=== PATIENT | male | born 1950 | race Caucasian/White ===

== ENCOUNTER 2017-03-06 11:00 | Day surgery (SDC) | payer MEDICARE ==
[~2017-03-06] VITALS: Ht 170.2 cm; Wt 106.0 kg
[~2017-03-06 11:00] MED LIST: ASPI-496 PO; FENO43CA3 PO; INSU100V8 SQ; LINA5TAB PO; OMEP-110 PO; OXYC5CAP2 PO; SITA25TA PO
[2017-03-06 11:27] VITALS: BP 127/69
[2017-03-06] MEDS ORDERED: SODIUM CHLORIDE 0.9% 1,000 ML IV ONE (11:30)
[2017-03-06] MEDS ORDERED: PROPOFOL 10 MG/ML, 20ML ONE (11:45)
== END 2017-03-06 13:20 ==
LOC: CACL 11:00
PROVIDERS: ATTEND Internal Medicine Cardiovascular Disease
DX: I34.0 Nonrheumatic mitral (valve) insufficiency (principal); I25.10 Atherosclerotic heart disease of native coronary artery without angina pectoris; E11.42 Type 2 diabetes mellitus with diabetic polyneuropathy; I38 Endocarditis, valve unspecified; G47.33 Obstructive sleep apnea (adult) (pediatric); J44.9 Chronic obstructive pulmonary disease, unspecified; I47.2 Ventricular tachycardia; E78.5 Hyperlipidemia, unspecified; Z88.1 Allergy status to other antibiotic agents; Z88.0 Allergy status to penicillin; Z88.8 Allergy status to other drugs, medicaments and biological substances
CPT/HCPCS: 93312; 93321; 93325; J2704

== ENCOUNTER → 2017-03-08 | Outpatient (CLI) | payer MEDICARE | END | disposition home or self-care (01) | LOC: CFH 12:18 | PROVIDERS: ATTEND Internal Medicine Cardiovascular Disease | DX: I65.23 Occlusion and stenosis of bilateral carotid arteries (principal); I47.2 Ventricular tachycardia | CPT/HCPCS: 78452; 93017; A9502; J2785 ==

== ENCOUNTER → 2017-03-09 | Outpatient (CLI) | payer MEDICARE ==
[~2017-03-09] MED LIST changes: +REGADENOSON 0.4 MG/5 ML SYRINGE ONE
== END | disposition home or self-care (01) ==
LOC: CVU 14:37
PROVIDERS: ATTEND Internal Medicine Cardiovascular Disease
DX: I65.23 Occlusion and stenosis of bilateral carotid arteries (principal); I47.2 Ventricular tachycardia; E11.9 Type 2 diabetes mellitus without complications; E78.5 Hyperlipidemia, unspecified; I10 Essential (primary) hypertension; I25.2 Old myocardial infarction; Z87.891 Personal history of nicotine dependence; Z95.5 Presence of coronary angioplasty implant and graft
CPT/HCPCS: 93880; J2785

== ENCOUNTER → 2017-03-23 | Outpatient (CLI) | payer MEDICARE ==
[~2017-03-23] MED LIST changes: -REGADENOSON 0.4 MG/5 ML SYRINGE ONE
== END | disposition home or self-care (01) ==
LOC: CVU 08:47
PROVIDERS: ATTEND Internal Medicine Cardiovascular Disease
DX: I51.7 Cardiomegaly (principal); I25.2 Old myocardial infarction; J44.9 Chronic obstructive pulmonary disease, unspecified; E11.9 Type 2 diabetes mellitus without complications; I47.2 Ventricular tachycardia; Z95.5 Presence of coronary angioplasty implant and graft
CPT/HCPCS: 93306

== ENCOUNTER 2017-07-12 14:08 | Inpatient (IN) | payer MEDICARE ==
[~2017-07-12] VITALS: Ht 170.2 cm; Wt 110.5 kg
[2017-07-12] MEDS ORDERED: MORPHINE SULFATE 4 MG/ML, 1ML IVPush PRN (14:30)
[2017-07-12] MEDS ORDERED: ONDANSETRON ODT 4 MG PO ONE (14:30)
[2017-07-12] MEDS ORDERED: SODIUM CHLORIDE FLUSH 10ML SYR IVF ONE (14:30)
[2017-07-12] MEDS ORDERED: PLEASE ENTER HEIGHT AND WEIGHT MC SCH (14:30)
[2017-07-12] MEDS ORDERED: MORPHINE SULFATE 4 MG/ML, 1ML ONE (14:43)
[2017-07-12 14:45] LABS: BASOPHILS # (AUTO) 0.06 x10^3/uL (0-0.1); BASOPHILS % (AUTO) 1 % (0-1); EOSINOPHILS # (AUTO) 0.15 x10^3/uL (0-0.4); EOSINOPHILS % (AUTO) 2 % (1-7); LYMPHOCYTES % (AUTO) 14 % (22-44); MD NO; MEAN CORPUSCULAR HEMOGLOBIN 30.4 pg (27.5-34.5); MEAN CORPUSCULAR HGB CONC 33.8 g/dL (33.2-36.2); MEAN CORPUSCULAR VOLUME 90.1 fL (81-97); MONOCYTES # (AUTO) 0.68 x10^3/uL (0.2-0.8); MONOCYTES % (AUTO) 8 % (2-9); NEUTROPHILS # (AUTO) 6.19 x10^3/uL (1.8-6.8); NEUTROPHILS % (AUTO) 76 % (42-75); PLATELET COUNT 272 x10^3/uL (130-400); RED BLOOD COUNT 4.14 x10^6/uL (4.38-5.82)
[2017-07-12 14:58] LABS: ALANINE AMINOTRANSFERASE 41 U/L (12-78); ALBUMIN 3.3 g/dL (3.4-5.0); ANION GAP 7 mmol/L (5-15); CALCIUM 8.7 mg/dL (8.5-10.1); CHLORIDE 107 mmol/L (98-107); CREATININE 1.99 mg/dL (0.7-1.3)
[2017-07-12 15:02] LABS: ALKALINE PHOSPHATASE 74 U/L (45-117); BILIRUBIN,TOTAL 0.4 mg/dL (0.2-1.0); TOTAL PROTEIN 6.7 g/dL (6.4-8.2); TROPONIN I < 0.015 ng/mL (0.000-0.045)
[2017-07-12 15:12] LABS: INTERNATIONAL NORMALIZED RATIO 1.01 (0.93-1.1); PROTHROMBIN TIME 10.5 Seconds (9.6-11.5)
[2017-07-12] MEDS ORDERED: SODIUM CHLORIDE 0.9% 1,000 ML IV ONE (15:36)
[2017-07-12] MEDS ORDERED: LISI-167 PO (15:46)
[2017-07-12] MEDS ORDERED: METO-93 PO (15:46)
[2017-07-12] MEDS ORDERED: POTA15TA9 PO (15:46)
[2017-07-12] MEDS ORDERED: PRAS10TA4 PO (15:46)
[2017-07-12] MEDS ORDERED: VENL75TA2 PO (15:46)
[2017-07-12] MEDS ORDERED: FURO-92 PO (15:57)
[2017-07-12] MEDS ORDERED: TIOT18CA INH (15:57)
[2017-07-12] MEDS ORDERED: INSU100I13 SC (15:57)
[2017-07-12] MEDS ORDERED: FLUT1DIS3 INH (15:57)
[2017-07-12] MEDS ORDERED: LINA5TAB PO (15:57)
[2017-07-12] MEDS ORDERED: LIRA0.6P2 SC (15:57)
[2017-07-12] MEDS ORDERED: ATOR40TA78 PO (15:57)
[2017-07-12] MEDS ORDERED: IPRA3AMP INH (15:57)
[2017-07-12] MEDS ORDERED: AMIO200T42 PO (15:57)
[2017-07-12] MEDS ORDERED: MAG OXIDE PO (15:57)
[2017-07-12] MEDS ORDERED: ATOR-2 PO (15:57)
[2017-07-12] MEDS ORDERED: HYDR12.58 PO (15:57)
[2017-07-12] MEDS ORDERED: BISACODYL 10 MG SUPP PR PRN (16:00)
[2017-07-12] MEDS ORDERED: hydrALAzine 20 MG/ML, 1ML IVPush PRN (16:00)
[2017-07-12] MEDS ORDERED: ACETAMINOPHEN 325 MG TABLET PO PRN (16:00)
[2017-07-12] MEDS ORDERED: DOCUSATE 100 MG CAPSULE PO PRN (16:00)
[2017-07-12] MEDS ORDERED: SODIUM CHLORIDE FLUSH 10ML SYR IVF PRN (16:00)
[2017-07-12] MEDS ORDERED: ONDANSETRON 2MG/ML, 2ML IVPush PRN (16:00)
[2017-07-12] MEDS ORDERED: morphine SULFATE 10 MG/ML, 1ML IVPush PRN (16:00)
[2017-07-12] MEDS ORDERED: HYDROcodone/APAP 5/325 TABLET PO PRN (16:00)
[2017-07-12] MEDS ORDERED: POLYETHYLENE GLYCOL 17 GM PACKET PO PRN (16:00)
[2017-07-12] MEDS ORDERED: NITROGLYCERIN 0.4 MG BOTTLE (25 TABS) SL PRN (16:00)
[2017-07-12 19:10] LABS: TROPONIN I < 0.015 ng/mL (0.000-0.045)
[2017-07-12 19:30] VITALS: BP 120/77
[2017-07-12] MEDS: ALBUTEROL/IPRATROPIUM 2.5MG/0.5MG, 3 ML NPPB SCH (20:10)
[2017-07-12] MEDS: INSULIN LISPRO 100 UNITS/ML, PEN SQ-INSULIN SCH (20:14)
[2017-07-12] MEDS: MAGNESIUM OXIDE 400 MG TABLET PO SCH (20:27)
[2017-07-12] MEDS: HEPARIN 5,000 UNITS/ML, 1ML SQ SCH (20:27)
[2017-07-12] MEDS: SODIUM CHLORIDE 0.9% 1,000 ML IV SCH (20:28)
[2017-07-12] MEDS ORDERED: ATORVASTATIN 40 MG TABLET PO SCH (21:00)
[2017-07-12] MEDS: FLUTICASONE/VILANTEROL 100-25MCG/INH INH SCH (21:00)
[2017-07-13 01:04] VITALS: BP 118/74
[2017-07-13 01:37] LABS: TROPONIN I < 0.015 ng/mL (0.000-0.045)
[2017-07-13 04:44] LABS: BASOPHILS # (AUTO) 0.04 x10^3/uL (0-0.1); BASOPHILS % (AUTO) 1 % (0-1); EOSINOPHILS # (AUTO) 0.14 x10^3/uL (0-0.4); EOSINOPHILS % (AUTO) 2 % (1-7); LYMPHOCYTES # (AUTO) 1.25 x10^3/uL (1-3.4); LYMPHOCYTES % (AUTO) 18 % (22-44); MD NO; MEAN CORPUSCULAR HGB CONC 33.5 g/dL (33.2-36.2); MEAN CORPUSCULAR VOLUME 89.5 fL (81-97); MEAN PLATELET VOLUME 8.9 fL (7.4-10.4); MONOCYTES # (AUTO) 0.79 x10^3/uL (0.2-0.8); MONOCYTES % (AUTO) 11 % (2-9); NEUTROPHILS # (AUTO) 4.78 x10^3/uL (1.8-6.8); NEUTROPHILS % (AUTO) 68 % (42-75); PLATELET COUNT 253 x10^3/uL (130-400); RED BLOOD COUNT 4.12 x10^6/uL (4.38-5.82); RED CELL DISTRIBUTION WIDTH 15.3 % (9.4-14.8)
[2017-07-13 04:50] LABS: ANION GAP 9 mmol/L (5-15); CALCIUM 8.6 mg/dL (8.5-10.1); CHLORIDE 108 mmol/L (98-107)
[2017-07-13 04:53] LABS: CHOLESTEROL, TOTAL 113 mg/dL (140-239); CREATININE 1.93 mg/dL (0.7-1.3); HDL CHOL % 34 % (26-37); HDL CHOLESTEROL (DIRECT) 38 mg/dL (40-60); LDL CHOLESTEROL,CALCULATED 46 mg/dL (54-169); LDL/HDL RATIO 1.2 (0.5-3.0); TRIGLYCERIDES 147 mg/dL (50-200); VLDL CHOLESTEROL 29 mg/dL (0-25)
[2017-07-13] MEDS: HEPARIN 5,000 UNITS/ML, 1ML SQ SCH ×2 (05:17→12:42)
[2017-07-13] MEDS: SODIUM CHLORIDE 0.9% 1,000 ML IV SCH (05:17)
[2017-07-13] MEDS ORDERED: ASPIRIN 325 MG TABLET EC PO SCH (06:00)
[2017-07-13] MEDS: INSULIN LISPRO 100 UNITS/ML, PEN SQ-INSULIN SCH ×2 (07:00→12:27)
[2017-07-13] MEDS: ALBUTEROL/IPRATROPIUM 2.5MG/0.5MG, 3 ML NPPB SCH ×2 (07:56→11:24)
[2017-07-13] MEDS ORDERED: AMIODARONE 200 MG TABLET PO SCH (09:00)
[2017-07-13] MEDS ORDERED: INSULIN GLARGINE 100 UNITS/ML, PEN SQ-INSULIN SCH (09:00)
[2017-07-13] MEDS ORDERED: IPRATROPIUM 0.5 MG/2.5 ML INHA HHN SCH (09:00)
[2017-07-13] MEDS ORDERED: METOPROLOL SUCCINATE 50 MG TAB.ER.24H PO SCH (09:00)
[2017-07-13] MEDS ORDERED: ASPIRIN 81 MG TABLET EC PO SCH (09:00)
[2017-07-13] MEDS: FLUTICASONE/VILANTEROL 100-25MCG/INH INH SCH (09:00)
[2017-07-13] MEDS ORDERED: LISINOPRIL 10 MG TABLET PO SCH (09:00)
[2017-07-13] MEDS ORDERED: VENLAFAXINE 75 MG CAP ER PO SCH (09:00)
[2017-07-13] MEDS ORDERED: PRASUGREL 10 MG TABLET PO SCH (09:00)
[2017-07-13] MEDS ORDERED: REGADENOSON 0.4 MG/5 ML SYRINGE ONE (09:30)
[2017-07-13] MEDS: MAGNESIUM OXIDE 400 MG TABLET PO SCH (11:19)
[2017-07-13] MEDS ORDERED: NITR0.4T SL (12:45)
== END 2017-07-13 14:14 | disposition home or self-care (01) | DRG 683 ==
LOC: ED 14:43 → EDIP 15:36 → 5SO 16:39 → DCLOUNGE 07-13 14:00
PROVIDERS: ADMIT Internal Medicine Pulmonary Disease; ATTEND Internal Medicine Pulmonary Disease
DX: N17.0 Acute kidney failure with tubular necrosis (principal); I24.9 Acute ischemic heart disease, unspecified; E44.0 Moderate protein-calorie malnutrition; E11.22 Type 2 diabetes mellitus with diabetic chronic kidney disease; E11.65 Type 2 diabetes mellitus with hyperglycemia; I25.10 Atherosclerotic heart disease of native coronary artery without angina pectoris; D64.9 Anemia, unspecified; E78.5 Hyperlipidemia, unspecified; F10.21 Alcohol dependence, in remission; I13.10 Hypertensive heart and chronic kidney disease without heart failure, with stage 1 through stage 4 chronic kidney disease, or unspecified chronic kidney disease; F32.9 Major depressive disorder, single episode, unspecified; I44.0 Atrioventricular block, first degree; I25.2 Old myocardial infarction; N18.1 Chronic kidney disease, stage 1; Z79.4 Long term (current) use of insulin; Z95.5 Presence of coronary angioplasty implant and graft; Z82.49 Family history of ischemic heart disease and other diseases of the circulatory system; Z83.3 Family history of diabetes mellitus; Z85.048 Personal history of other malignant neoplasm of rectum, rectosigmoid junction, and anus; Z87.442 Personal history of urinary calculi; Z87.891 Personal history of nicotine dependence; Z68.31 Body mass index [BMI] 31.0-31.9, adult; Z88.0 Allergy status to penicillin; Z90.49 Acquired absence of other specified parts of digestive tract; Z79.899 Other long term (current) drug therapy
CPT/HCPCS: 36415; 71045; 78452; 80048; 80053; 80061; 82962; 83690; 83880; 84484; 85025; 85610; 93005; 93017; 93308; 93321; 93325; 94640; 96374; J1644; J2785; J7620; A9502; C9898; J1815; J7030

== ENCOUNTER → 2017-10-02 | Outpatient (CLI) | payer MEDICARE ==
[~2017-10-02] MED LIST changes: +AMIO200T42 PO; +ATOR-2 PO; +ATOR40TA78 PO; +FLUT1DIS3 INH; +FURO-92 PO; +HYDR12.58 PO; +INSU100I13 SC; +IPRA3AMP INH; +LIRA0.6P2 SC; +LISI-167 PO; +MAG OXIDE PO; +METO-93 PO; +NITR0.4T SL; +POTA15TA9 PO; +PRAS10TA4 PO; +TIOT18CA INH; +VENL75TA2 PO
== END | disposition home or self-care (01) ==
LOC: CFH 13:19
PROVIDERS: ATTEND Nurse Practitioner Family
DX: M16.0 Bilateral primary osteoarthritis of hip (principal)
CPT/HCPCS: 73523

== ENCOUNTER 2018-04-24 22:33 | Emergency (ER) | payer MEDICARE ==
[~2018-04-24] VITALS: Ht 182.9 cm; Wt 105.0 kg
[~2018-04-24 22:33] MED LIST changes: -HYDR12.58 PO; +HYDROCHLOROTH12.5 MG PO; -IPRA3AMP INH; +IPRA3AMP30 INH
--- NOTE | 2018-04-24 23:15 | NUR ---
NO IMMEDIATE NEEDS FROM PT. VSS. CALL LIGHT WITHIN REACH. AWAITING ORDERS.
[2018-04-24 23:28] LABS: BASOPHILS % (AUTO) 0 % (0-1); EOSINOPHILS # (AUTO) 0.17 x10^3/uL (0-0.4); EOSINOPHILS % (AUTO) 2 % (1-7); LYMPHOCYTES # (AUTO) 0.67 x10^3/uL (1-3.4); LYMPHOCYTES % (AUTO) 8 % (22-44); MD NO; MEAN CORPUSCULAR HEMOGLOBIN 29.6 pg (27.5-34.5); MEAN CORPUSCULAR HGB CONC 33.7 g/dL (33.2-36.2); MEAN CORPUSCULAR VOLUME 87.8 fL (81-97); MEAN PLATELET VOLUME 9.1 fL (7.4-10.4); MONOCYTES # (AUTO) 0.71 x10^3/uL (0.2-0.8); MONOCYTES % (AUTO) 9 % (2-9); NEUTROPHILS # (AUTO) 6.64 x10^3/uL (1.8-6.8); NEUTROPHILS % (AUTO) 81 % (42-75); PLATELET COUNT 314 x10^3/uL (130-400); RED BLOOD COUNT 5.13 x10^6/uL (4.38-5.82); RED CELL DISTRIBUTION WIDTH 15.6 % (9.4-14.8)
[2018-04-24 23:39] LABS: ALANINE AMINOTRANSFERASE 30 U/L (12-78); ALBUMIN 3.5 g/dL (3.4-5.0); ANION GAP 9 mmol/L (5-15); CHLORIDE 108 mmol/L (98-107)
[2018-04-24 23:41] LABS: ALKALINE PHOSPHATASE 51 U/L (45-117); BILIRUBIN,TOTAL 0.6 mg/dL (0.2-1.0); CREATININE 2.14 mg/dL (0.7-1.3); TOTAL PROTEIN 7.5 g/dL (6.4-8.2)
[2018-04-25 00:16] VITALS: BP 164/81
--- NOTE | 2018-04-25 00:32 | NUR ---
ALL RESULTS BACK. PT UP FOR RECHECK.
--- NOTE | 2018-04-25 00:40 | NUR ---
PT STATES "THE DOCTOR DOES NOT TAKE ME SERIOUSLY..... HE CAME IN HERE TWICE AND THEN LEFT AND SAID HE WOULD BE BACK. HE DIDNT GIVE ME THE COMMON COURTESY OF CHECKING ON ME AGAIN." PT REFUSING TO FURTHER TALK TO STAFF. AWARE.
--- NOTE | 2018-04-25 00:45 | NUR ---
PT REFUSING TO PROVIDE UA. EDUCATED ON NEED. STILL REFUSING.
== END 2018-04-25 00:54 | disposition home or self-care (01) ==
LOC: ED 23:59
DX: R10.84 Generalized abdominal pain (principal); R19.7 Diarrhea, unspecified; R11.2 Nausea with vomiting, unspecified; E11.9 Type 2 diabetes mellitus without complications; I10 Essential (primary) hypertension; Z87.891 Personal history of nicotine dependence
CPT/HCPCS: 36415; 74022; 80053; 85025; 93005; 99284

== ENCOUNTER → 2018-06-26 | Outpatient (CLI) | payer MEDICARE | END | disposition home or self-care (01) | LOC: CFH 15:55 | PROVIDERS: ATTEND Internal Medicine Cardiovascular Disease | DX: E11.9 Type 2 diabetes mellitus without complications (principal); R07.9 Chest pain, unspecified; R79.89 Other specified abnormal findings of blood chemistry; E66.01 Morbid (severe) obesity due to excess calories; I10 Essential (primary) hypertension; I25.10 Atherosclerotic heart disease of native coronary artery without angina pectoris; I38 Endocarditis, valve unspecified; I47.2 Ventricular tachycardia; I65.23 Occlusion and stenosis of bilateral carotid arteries; I73.9 Peripheral vascular disease, unspecified; J44.9 Chronic obstructive pulmonary disease, unspecified; N28.9 Disorder of kidney and ureter, unspecified; G47.33 Obstructive sleep apnea (adult) (pediatric); F41.1 Generalized anxiety disorder; Z68.39 Body mass index [BMI] 39.0-39.9, adult; Z98.61 Coronary angioplasty status | CPT/HCPCS: 71046 ==

== ENCOUNTER 2019-01-26 18:16 | Emergency (ER) | payer MEDICARE ==
[~2019-01-26] VITALS: Ht 170.2 cm; Wt 108.2 kg
[~2019-01-26 18:16] MED LIST changes: -NITR0.4T SL; +NITR0.4T41 SL
[2019-01-26 18:53] LABS: BASOPHILS # (AUTO) 0.02 x10^3/uL (0-0.1); BASOPHILS % (AUTO) 0 % (0-1); EOSINOPHILS # (AUTO) 0.16 x10^3/uL (0-0.4); EOSINOPHILS % (AUTO) 2 % (1-7); LYMPHOCYTES # (AUTO) 0.91 x10^3/uL (1-3.4); LYMPHOCYTES % (AUTO) 13 % (22-44); MD NO; MEAN CORPUSCULAR HEMOGLOBIN 29.7 pg (27.5-34.5); MEAN CORPUSCULAR HGB CONC 33.5 g/dL (33.2-36.2); MEAN CORPUSCULAR VOLUME 88.6 fL (81-97); MEAN PLATELET VOLUME 9.2 fL (7.4-10.4); MONOCYTES # (AUTO) 0.55 x10^3/uL (0.2-0.8); MONOCYTES % (AUTO) 8 % (2-9); NEUTROPHILS # (AUTO) 5.26 x10^3/uL (1.8-6.8); NEUTROPHILS % (AUTO) 76 % (42-75); PLATELET COUNT 232 x10^3/uL (130-400); RED BLOOD COUNT 5.53 x10^6/uL (4.38-5.82); RED CELL DISTRIBUTION WIDTH 17.1 % (9.4-14.8)
[2019-01-26 19:03] LABS: ALBUMIN 3.6 g/dL (3.4-5.0); ANION GAP 4 mmol/L (5-15); CALCIUM 8.8 mg/dL (8.5-10.1); CHLORIDE 107 mmol/L (98-107); CREATININE 2.18 mg/dL (0.7-1.3)
--- NOTE | 2019-01-26 19:04 | NUR ---
Provided report to AYANA Dyer. All questions answered. AYANA Dyer to assume care of pt at this time. NADN. No needs reported.
[2019-01-26 19:07] LABS: TROPONIN I < 0.015 ng/mL (0.000-0.045)
--- NOTE | 2019-01-26 19:07 | NUR ---
Received report, reviewed patients present complaint. Assumed patient care. Patient was in imaging, just returned.
--- NOTE | 2019-01-26 19:21 | NUR ---
RN to bedside, provided warm blanket. Patient on cardiac, blood pressure and pulsatile oxygenation monitor. VSS. Awaiting CT/lab results.
[2019-01-26 19:48] VITALS: BP 106/61
== END 2019-01-26 19:59 | disposition home or self-care (01) ==
LOC: ED 19:53
DX: R55 Syncope and collapse (principal); R42 Dizziness and giddiness; R11.0 Nausea; R51 Headache; N28.9 Disorder of kidney and ureter, unspecified; I11.9 Hypertensive heart disease without heart failure; E78.5 Hyperlipidemia, unspecified; Z87.891 Personal history of nicotine dependence
CPT/HCPCS: 36415; 70450; 80048; 82040; 84484; 85025; 93005; 99284

== ENCOUNTER → 2019-08-07 | Outpatient (CLI) | payer MEDICARE, OTHER ==
[~2019-08-07] MED LIST changes: -FENO43CA3 PO; +FENO43CA6 PO
== END | disposition home or self-care (01) ==
LOC: CFH 11:26
PROVIDERS: ATTEND Licensed Practical Nurse
DX: Z12.2 Encounter for screening for malignant neoplasm of respiratory organs (principal); J98.4 Other disorders of lung; J43.2 Centrilobular emphysema; I25.10 Atherosclerotic heart disease of native coronary artery without angina pectoris; F17.211 Nicotine dependence, cigarettes, in remission; I70.0 Atherosclerosis of aorta
CPT/HCPCS: G0297

== ENCOUNTER → 2019-11-18 | Outpatient (CLI) | payer MEDICARE, OTHER ==
[~2019-11-18] MED LIST changes: +ASPI81TA45 PO; +CLOP75TA PO; +FENO160T PO; +FLUTICASONE INH; +IPRA3AMP30 NEB; +LISI1TAB23 PO; +LISI5TAB7 PO; +MAGN400T9 PO; +METO50TA82 PO; +PARO10TA3 PO; +POTA20TA14 PO; +SALMETEROL INH; +TRICEBA SQ
== END | disposition home or self-care (01) ==
LOC: CFH 10:22
PROVIDERS: ATTEND Internal Medicine Nephrology
DX: N18.3 Chronic kidney disease, stage 3 (moderate) (principal); R80.9 Proteinuria, unspecified; I25.10 Atherosclerotic heart disease of native coronary artery without angina pectoris; E83.42 Hypomagnesemia; Z87.442 Personal history of urinary calculi
CPT/HCPCS: 76770

== ENCOUNTER 2020-05-19 08:52 | Inpatient (IN) | payer MEDICARE, OTHER ==
[~2020-05-19] VITALS: Ht 170.2 cm; Wt 115.2 kg
[2020-05-19] MEDS ORDERED: SODIUM CHLORIDE FLUSH 10ML SYR IVF ONE (09:00)
--- NOTE | 2020-05-19 09:02 | NUR ---
PT BIB EMS FOR CP THAT STARTED THIS AM. 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 PT ALSO HAVING SOB, BUT STATES HE ALWAYS DOES DUE TO HAVING COPD. PT NOT ON HOME O2. PT DENIES N/V OR BENAVIDES. PT STATES HE FEELS BETTER NOW, HOWEVER WHEN THE PAIN WAS OCCURRING IT FELT SIMILIAR TO HIS PREVIOUS HEART ATTACK.
[2020-05-19 09:13] LABS: BASOPHILS % (AUTO) 1 % (0-1); EOSINOPHILS % (AUTO) 3 % (1-7); LYMPHOCYTES % (AUTO) 21 % (22-44); MEAN CORPUSCULAR HEMOGLOBIN 31.1 pg (27.5-34.5); MEAN CORPUSCULAR HGB CONC 34.8 g/dL (33.2-36.2); MEAN PLATELET VOLUME 9.2 fL (7.4-10.4); MONOCYTES % (AUTO) 10 % (2-9); NEUTROPHILS % (AUTO) 65 % (42-75); PLATELET COUNT 229 x10^3/uL (130-400)
[2020-05-19 09:19] LABS: MD NO
[2020-05-19 09:25] LABS: ALBUMIN 3.2 g/dL (3.4-5.0); ANION GAP 7 mmol/L (5-15); CALCIUM 8.7 mg/dL (8.5-10.1); CHLORIDE 106 mmol/L (98-107); CREATININE 1.89 mg/dL (0.7-1.3)
[2020-05-19 09:28] LABS: TROPONIN I 0.087 ng/mL (0.000-0.045)
[2020-05-19] MEDS ORDERED: NITROGLYCERIN SINGLE TAB 0.4 MG SL PRN (10:00)
--- NOTE | 2020-05-19 10:22 | NUR ---
PHONE REPORT TO AYANA GARRETT
[2020-05-19] MEDS ORDERED: LORazepam 2 MG/ML, 1ML IVPush ONE (10:30)
[2020-05-19 10:50] VITALS: BP 146/75
[2020-05-19] MEDS ORDERED: SODIUM CHLORIDE FLUSH 10ML SYR IVF PRN (11:00)
[2020-05-19 12:41] VITALS: BP 146/75
[2020-05-19] MEDS: HEPARIN 5,000 UNITS/ML, 1ML SQ SCH ×2 (12:53→20:50)
[2020-05-19] MEDS ORDERED: ONDANSETRON 2MG/ML, 2ML IVPush PRN (13:00)
[2020-05-19 13:05] LABS: TROPONIN I 0.093 ng/mL (0.000-0.045)
[2020-05-19] MEDS: LORazepam 0.5MG TABLET PO PRN ×2 (13:23→20:49)
[2020-05-19 15:50] VITALS: BP 146/77
[2020-05-19] MEDS: INSULIN LISPRO 100 UNITS/ML, PEN SQ-INSULIN SCH ×2 (18:00→20:51)
[2020-05-19 18:31] LABS: TROPONIN I 0.837 ng/mL (0.000-0.045)
[2020-05-19 19:04] VITALS: BP 127/65
[2020-05-19] MEDS: ATORVASTATIN 80 MG TABLET PO SCH (20:49)
[2020-05-19 22:41] VITALS: BP 153/84
[2020-05-20 01:06] VITALS: BP 121/65
[2020-05-20] MEDS: HEPARIN 5,000 UNITS/ML, 1ML SQ SCH ×2 (04:58→12:03)
[2020-05-20 05:04] LABS: BASOPHILS % (AUTO) 1 % (0-1); EOSINOPHILS % (AUTO) 3 % (1-7); LYMPHOCYTES % (AUTO) 25 % (22-44); MEAN PLATELET VOLUME 9.3 fL (7.4-10.4); MONOCYTES % (AUTO) 10 % (2-9); NEUTROPHILS % (AUTO) 61 % (42-75); PLATELET COUNT 236 x10^3/uL (130-400); RED BLOOD COUNT 4.56 x10^6/uL (4.38-5.82)
[2020-05-20 05:12] LABS: MD NO
[2020-05-20 05:13] LABS: ALANINE AMINOTRANSFERASE 38 U/L (12-78); ALBUMIN 3.2 g/dL (3.4-5.0); ANION GAP 8 mmol/L (5-15); CALCIUM 8.5 mg/dL (8.5-10.1); CHLORIDE 106 mmol/L (98-107)
[2020-05-20 05:16] LABS: ALKALINE PHOSPHATASE 72 U/L (45-117); BILIRUBIN,TOTAL 0.4 mg/dL (0.2-1.0); CREATININE 1.78 mg/dL (0.7-1.3); TOTAL PROTEIN 6.4 g/dL (6.4-8.2)
[2020-05-20 07:49] VITALS: BP 150/78
[2020-05-20] MEDS: CLOPIDOGREL 75 MG TABLET PO SCH (08:38)
[2020-05-20] MEDS: INSULIN LISPRO 100 UNITS/ML, PEN SQ-INSULIN SCH ×4 (08:38→21:56)
[2020-05-20] MEDS: LISINOPRIL 10 MG TABLET PO SCH (08:39)
[2020-05-20] MEDS: AMIODARONE 200 MG TABLET PO SCH (08:39)
[2020-05-20] MEDS: METOPROLOL SUCCINATE 50 MG TAB.ER.24H PO SCH (08:39)
[2020-05-20] MEDS: ASPIRIN 81 MG TABLET EC PO SCH (08:39)
[2020-05-20] MEDS ORDERED: SODIUM CHLORIDE 0.9% 1,000 ML IV SCH (12:00)
[2020-05-20 13:29] VITALS: BP 158/78
[2020-05-20] MEDS: SODIUM CHLORIDE 0.9% 1,000 ML IV SCH ×2 (16:58→20:09)
[2020-05-20] MEDS ORDERED: HEPARIN/D5W 25,000 UNITS/250 ML PREMIX IART SCH (17:00)
[2020-05-20] MEDS ORDERED: HEPARIN 5,000 UNITS/ML, 1ML IV ONE (17:00)
[2020-05-20] MEDS ORDERED: HEPARIN 25,000 UNITS/250ML PMX 250 ML IV PRN (17:00)
[2020-05-20 19:23] VITALS: BP 119/70
[2020-05-20] MEDS: ATORVASTATIN 80 MG TABLET PO SCH (21:55)
[2020-05-21] MEDS: HEPARIN 5,000 UNITS/ML, 1ML IV PRN ×2 (00:40→08:53)
[2020-05-21 01:54] VITALS: BP 159/78
[2020-05-21] MEDS: LEVOTHYROXINE 25 MCG TABLET PO SCH (05:41)
[2020-05-21 05:42] LABS: BASOPHILS % (AUTO) 2 % (0-1); EOSINOPHILS % (AUTO) 3 % (1-7); LYMPHOCYTES % (AUTO) 27 % (22-44); MEAN CORPUSCULAR HEMOGLOBIN 30.6 pg (27.5-34.5); MEAN CORPUSCULAR HGB CONC 34.6 g/dL (33.2-36.2); MEAN PLATELET VOLUME 9.5 fL (7.4-10.4); MONOCYTES % (AUTO) 10 % (2-9); NEUTROPHILS % (AUTO) 58 % (42-75); PLATELET COUNT 212 x10^3/uL (130-400); RED BLOOD COUNT 4.55 x10^6/uL (4.38-5.82); RED CELL DISTRIBUTION WIDTH 15.3 % (9.4-14.8)
[2020-05-21 05:45] LABS: MD NO
[2020-05-21 05:51] LABS: ALANINE AMINOTRANSFERASE 35 U/L (12-78); ALBUMIN 3.1 g/dL (3.4-5.0); ANION GAP 8 mmol/L (5-15); CALCIUM 8.4 mg/dL (8.5-10.1); CHLORIDE 111 mmol/L (98-107); CREATININE 1.51 mg/dL (0.7-1.3)
[2020-05-21 05:54] LABS: ALKALINE PHOSPHATASE 53 U/L (45-117); BILIRUBIN,TOTAL 0.5 mg/dL (0.2-1.0); TOTAL PROTEIN 6.2 g/dL (6.4-8.2)
[2020-05-21 06:59] VITALS: BP 147/79
[2020-05-21] MEDS: INSULIN LISPRO 100 UNITS/ML, PEN SQ-INSULIN SCH ×4 (07:00→20:44)
[2020-05-21] MEDS: AMIODARONE 200 MG TABLET PO SCH (08:52)
[2020-05-21] MEDS: METOPROLOL SUCCINATE 50 MG TAB.ER.24H PO SCH (08:52)
[2020-05-21] MEDS: CLOPIDOGREL 75 MG TABLET PO SCH (08:52)
[2020-05-21] MEDS: LISINOPRIL 10 MG TABLET PO SCH (08:52)
[2020-05-21] MEDS: ASPIRIN 81 MG TABLET EC PO SCH (08:54)
[2020-05-21] MEDS ORDERED: LIDOCAINE-MPF 1%, 5ML ONE (09:42)
[2020-05-21] MEDS ORDERED: FENTANYL PF 100 MCG/2ML ONE (09:42)
[2020-05-21] MEDS ORDERED: MIDAZOLAM 1 MG/ML, 2ML ONE ×2 (09:42→10:46)
[2020-05-21] MEDS ORDERED: VERAPAMIL 2.5 MG/ML, 2ML ONE (09:42)
[2020-05-21] MEDS ORDERED: HEPARIN 1,000 UNITS/ML, 10ML ONE (09:42)
[2020-05-21] MEDS ORDERED: TICAGRELOR 90 MG TABLET ONE (10:46)
[2020-05-21] MEDS ORDERED: BIVALIRUDIN 250 MG ONE (10:46)
[2020-05-21 15:27] VITALS: BP 113/69
[2020-05-21] MEDS ORDERED: POTASSIUM CHLORIDE 20 MEQ TAB.ER.PRT PO ONE (15:30)
[2020-05-21] MEDS ORDERED: FUROSEMIDE 40 MG/4 ML IV ONE (15:30)
[2020-05-21 20:18] VITALS: BP 130/75
[2020-05-21] MEDS: ATORVASTATIN 80 MG TABLET PO SCH (20:43)
[2020-05-22 02:00] VITALS: BP 127/73
[2020-05-22 05:00] LABS: ANION GAP 10 mmol/L (5-15); CALCIUM 8.7 mg/dL (8.5-10.1); CHLORIDE 109 mmol/L (98-107); CREATININE 1.74 mg/dL (0.7-1.3)
[2020-05-22] MEDS: LEVOTHYROXINE 25 MCG TABLET PO SCH (05:15)
[2020-05-22 05:24] LABS: BASOPHILS % (AUTO) 1 % (0-1); EOSINOPHILS % (AUTO) 4 % (1-7); LYMPHOCYTES % (AUTO) 19 % (22-44); MEAN CORPUSCULAR HEMOGLOBIN 30.7 pg (27.5-34.5); MEAN CORPUSCULAR HGB CONC 34.8 g/dL (33.2-36.2); MEAN PLATELET VOLUME 9.6 fL (7.4-10.4); MONOCYTES % (AUTO) 11 % (2-9); NEUTROPHILS % (AUTO) 65 % (42-75); PLATELET COUNT 233 x10^3/uL (130-400); RED BLOOD COUNT 4.62 x10^6/uL (4.38-5.82); RED CELL DISTRIBUTION WIDTH 15.2 % (9.4-14.8)
[2020-05-22 05:25] LABS: MD NO
[2020-05-22 07:21] VITALS: BP 153/76
[2020-05-22] MEDS: METOPROLOL SUCCINATE 50 MG TAB.ER.24H PO SCH (08:47)
[2020-05-22] MEDS: CLOPIDOGREL 75 MG TABLET PO SCH (08:48)
[2020-05-22] MEDS: AMIODARONE 200 MG TABLET PO SCH (08:48)
[2020-05-22] MEDS: ASPIRIN 81 MG TABLET EC PO SCH (08:48)
[2020-05-22] MEDS: LISINOPRIL 10 MG TABLET PO SCH (08:48)
[2020-05-22] MEDS: INSULIN LISPRO 100 UNITS/ML, PEN SQ-INSULIN SCH ×2 (08:57→11:51)
[2020-05-22] MEDS ORDERED: LEVO25TA2 PO (10:54)
[2020-05-22] MEDS ORDERED: LISI-167 PO (11:46)
== END 2020-05-22 13:30 | disposition home or self-care (01) | DRG 281 ==
LOC: ED 10:51 → 5SO 10:52 → DCLOUNGE 05-22 13:15
PROVIDERS: ADMIT Internal Medicine; ATTEND Internal Medicine
PROC: 4A023N7 Measurement of Cardiac Sampling and Pressure, Left Heart, Percutaneous Approach (ICD-10-PCS; principal; 2020-05-21)
PROC: B2111ZZ Fluoroscopy of Multiple Coronary Arteries using Low Osmolar Contrast (ICD-10-PCS; 2020-05-21)
PROC: B2151ZZ Fluoroscopy of Left Heart using Low Osmolar Contrast (ICD-10-PCS; 2020-05-21)
PROC: 02JY3ZZ Inspection of Great Vessel, Percutaneous Approach (ICD-10-PCS; 2020-05-21)
DX: I21.4 Non-ST elevation (NSTEMI) myocardial infarction (principal); I47.2 Ventricular tachycardia; I12.9 Hypertensive chronic kidney disease with stage 1 through stage 4 chronic kidney disease, or unspecified chronic kidney disease; E11.22 Type 2 diabetes mellitus with diabetic chronic kidney disease; I25.10 Atherosclerotic heart disease of native coronary artery without angina pectoris; N18.30 Chronic kidney disease, stage 3 unspecified; E11.51 Type 2 diabetes mellitus with diabetic peripheral angiopathy without gangrene; E78.5 Hyperlipidemia, unspecified; F41.9 Anxiety disorder, unspecified; E66.01 Morbid (severe) obesity due to excess calories; Z68.39 Body mass index [BMI] 39.0-39.9, adult; Z95.5 Presence of coronary angioplasty implant and graft; Z79.4 Long term (current) use of insulin; I25.2 Old myocardial infarction; Z90.49 Acquired absence of other specified parts of digestive tract; Z82.49 Family history of ischemic heart disease and other diseases of the circulatory system; Z83.3 Family history of diabetes mellitus; Z88.0 Allergy status to penicillin; Z87.891 Personal history of nicotine dependence; Z80.51 Family history of malignant neoplasm of kidney
CPT/HCPCS: 36415; 71045; 78580; 80048; 80053; 82040; 82962; 83036; 83735; 83880; 84443; 84484; 85025; 85379; 85520; 92920; 93005; 93458; 96372; 99156; 99157; 99285; C1769; C1894; C8929; G0378; J0583; J1644; J1940; J2250; J3010; A9540; C1887; J1815; J7030; Q9967

== ENCOUNTER 2020-08-09 06:44 | Observation (INO) | payer MEDICARE ==
[~2020-08-09] VITALS: Ht 170.2 cm; Wt 114.9 kg
[~2020-08-09 06:44] MED LIST changes: +LEVO25TA2 PO
[2020-08-09] MEDS ORDERED: SODIUM CHLORIDE 0.9% 1,000ML IVBOLUS ONE (07:00)
[2020-08-09] MEDS ORDERED: SODIUM CHLORIDE FLUSH 10ML SYR IVF ONE (07:00)
--- NOTE | 2020-08-09 07:18 | NUR ---
Pt complains of fevers and chills, reports home temp of 105*F using a temporal thermometer. 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 Hx of sepsis. Hx of COPD, no home O2, RA sat for REMSA < 90%. Breathing tx in route. RA sat < 90 on arrival. Pt vague about SOB, "I always feel SOB, but not just laying here." Connected to all monitors upon arrival. MD Love to bedside for eval. Reviewed orders and POC with pt; pt agrees, all questions answered.
[2020-08-09] MEDS ORDERED: LINA5TAB PO (07:29)
[2020-08-09] MEDS ORDERED: ATOR20TA37 PO (07:29)
[2020-08-09] MEDS ORDERED: FENO145T32 PO (07:29)
[2020-08-09 07:44] LABS: BASOPHILS % (AUTO) 1 % (0-1); EOSINOPHILS % (AUTO) 0 % (1-7); LYMPHOCYTES % (AUTO) 13 % (22-44); MONOCYTES % (AUTO) 10 % (2-9); NEUTROPHILS % (AUTO) 76 % (42-75); PLATELET COUNT 227 x10^3/uL (130-400); RED CELL DISTRIBUTION WIDTH 15.3 % (9.4-14.8)
[2020-08-09 07:51] LABS: ALANINE AMINOTRANSFERASE 36 U/L (12-78); ANION GAP 6 mmol/L (5-15); CALCIUM 8.2 mg/dL (8.5-10.1); CHLORIDE 111 mmol/L (98-107); CREATININE 1.86 mg/dL (0.7-1.3)
[2020-08-09 07:54] LABS: ALKALINE PHOSPHATASE 43 U/L (45-117); BILIRUBIN,TOTAL 0.3 mg/dL (0.2-1.0); TOTAL PROTEIN 6.6 g/dL (6.4-8.2)
--- NOTE | 2020-08-09 08:10 | NUR ---
Ana María, , okay to update.
[2020-08-09 08:20] LABS: MICROSCOPIC AUTO
--- NOTE | 2020-08-09 08:53 | NUR ---
Bedside report to AYANA Connor. Pt remains connected to all monitors, NADN. Pt's chart placed for recheck. Addendum: 08/09/20 at 0855 by BOBO Bedside report to AYANA Connor, to assume full care. Pt remains connected to all monitors, NADN. Pt's chart placed for recheck.
--- NOTE | 2020-08-09 09:00 | NUR ---
BEDSIDE REPORT FROM AYANA POLO AT THIS TIME. PT RESTING IN JULIO MYERS AT THIS TIME, LAURENT. PER PT NO NEEDS.
--- NOTE | 2020-08-09 10:21 | NUR ---
PT AMBULATED STEADILY TO RESTROOM AT THIS TIME.
[2020-08-09] MEDS: DOXYCYCLINE 100 MG in DEXTROSE 5% 250 ML IV SCH (11:32)
--- NOTE | 2020-08-09 11:41 | NUR ---
DR. CASH AT BEDSIDE AT THIS TIME.
--- NOTE | 2020-08-09 12:28 | NUR ---
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
[2020-08-09] MEDS ORDERED: ONDANSETRON ODT 4 MG PO PRN (13:00)
[2020-08-09] MEDS ORDERED: LABETALOL 5MG/ML, 20ML IVPush PRN (13:00)
[2020-08-09] MEDS: HEPARIN 5,000 UNITS/ML, 1ML SQ SCH ×2 (13:00→21:48)
[2020-08-09] MEDS ORDERED: ONDANSETRON 2MG/ML, 2ML IVPush PRN (13:00)
[2020-08-09] MEDS ORDERED: MELATONIN 5 MG TABLET PO PRN (13:00)
[2020-08-09] MEDS ORDERED: ACETAMINOPHEN 325 MG TABLET PO PRN (13:00)
[2020-08-09] MEDS ORDERED: ALBUTEROL/IPRATROPIUM 2.5MG/0.5MG, 3 ML NPPB PRN (14:00)
[2020-08-09 14:30] VITALS: BP 124/65
[2020-08-09] MEDS ORDERED: DEXTROSE 50%, 50ML SYRINGE IVPush PRN (16:30)
[2020-08-09] MEDS: INSULIN LISPRO 100 UNITS/ML, PEN SQ-INSULIN SCH ×2 (16:30→22:34)
[2020-08-09] MEDS ORDERED: DEXTROSE 4 GM TAB.CHEW PO PRN (16:30)
[2020-08-09] MEDS ORDERED: GLUCAGON 1 MG IM PRN (16:30)
[2020-08-09] MEDS ORDERED: FENO160T PO (17:12)
[2020-08-09 19:14] VITALS: BP 151/71
[2020-08-09] MEDS: BUDESONIDE 0.5 MG/2 ML INHA NPPB SCH (19:40)
[2020-08-09] MEDS ORDERED: INSULIN GLARGINE 100 UNITS/ML, PEN SQ-INSULIN SCH (21:00)
[2020-08-09] MEDS ORDERED: ATORVASTATIN 80 MG TABLET PO SCH (21:00)
[2020-08-09] MEDS: POTASSIUM CHLORIDE 20 MEQ TAB.ER.PRT PO SCH (21:46)
[2020-08-09] MEDS: FUROSEMIDE 40 MG TABLET PO SCH (21:46)
[2020-08-09] MEDS: MAGNESIUM OXIDE 400 MG TABLET PO SCH (21:46)
[2020-08-09] MEDS: SODIUM CHLORIDE FLUSH 10ML SYR IVF SCH (22:35)
[2020-08-10] MEDS: DOXYCYCLINE 100 MG in DEXTROSE 5% 250 ML IV SCH ×2 (00:17→11:17)
[2020-08-10 00:33] VITALS: BP 107/58
[2020-08-10 04:51] LABS: BASOPHILS % (AUTO) 1 % (0-1); EOSINOPHILS % (AUTO) 1 % (1-7); LYMPHOCYTES % (AUTO) 27 % (22-44); MEAN CORPUSCULAR HEMOGLOBIN 29.9 pg (27.5-34.5); MEAN CORPUSCULAR HGB CONC 33.8 g/dL (33.2-36.2); MEAN PLATELET VOLUME 8.8 fL (7.4-10.4); MONOCYTES % (AUTO) 15 % (2-9); NEUTROPHILS % (AUTO) 55 % (42-75); PLATELET COUNT 213 x10^3/uL (130-400); RED BLOOD COUNT 4.85 x10^6/uL (4.38-5.82); RED CELL DISTRIBUTION WIDTH 15.4 % (9.4-14.8)
[2020-08-10 05:02] LABS: ANION GAP 6 mmol/L (5-15); CALCIUM 8.6 mg/dL (8.5-10.1); CHLORIDE 110 mmol/L (98-107)
[2020-08-10 05:03] LABS: CREATININE 1.79 mg/dL (0.7-1.3)
[2020-08-10] MEDS: HEPARIN 5,000 UNITS/ML, 1ML SQ SCH ×2 (05:06→12:39)
[2020-08-10] MEDS ORDERED: LEVOTHYROXINE 25 MCG TABLET PO SCH (06:00)
[2020-08-10 06:57] VITALS: BP 137/79
[2020-08-10] MEDS: INSULIN LISPRO 100 UNITS/ML, PEN SQ-INSULIN SCH ×2 (07:00→11:13)
[2020-08-10] MEDS: SODIUM CHLORIDE FLUSH 10ML SYR IVF SCH (07:23)
[2020-08-10] MEDS: FUROSEMIDE 40 MG TABLET PO SCH (08:30)
[2020-08-10] MEDS: POTASSIUM CHLORIDE 20 MEQ TAB.ER.PRT PO SCH (08:30)
[2020-08-10] MEDS: MAGNESIUM OXIDE 400 MG TABLET PO SCH (08:32)
[2020-08-10] MEDS: BUDESONIDE 0.5 MG/2 ML INHA NPPB SCH (08:34)
[2020-08-10] MEDS ORDERED: OMEPRAZOLE 20 MG CAPSULE.DR PO SCH (09:00)
[2020-08-10] MEDS ORDERED: VENLAFAXINE 75 MG CAP ER PO SCH (09:00)
[2020-08-10] MEDS ORDERED: ASPIRIN 81 MG TABLET EC PO SCH (09:00)
[2020-08-10] MEDS ORDERED: AMIODARONE 200 MG TABLET PO SCH (09:00)
[2020-08-10] MEDS ORDERED: LISINOPRIL 10 MG TABLET PO SCH (09:00)
[2020-08-10] MEDS ORDERED: LINAGLIPTIN 5 MG TAB PO SCH (09:00)
[2020-08-10] MEDS ORDERED: METOPROLOL SUCCINATE 50 MG TAB.ER.24H PO SCH (09:00)
[2020-08-10] MEDS ORDERED: FENOFIBRATE 54 MG TABLET PO SCH (09:00)
[2020-08-10] MEDS ORDERED: DOXY100T PO (09:16)
[2020-08-10 12:50] VITALS: BP 110/68
== END 2020-08-10 13:24 | disposition home or self-care (01) ==
LOC: ED 07:07 → 3N 11:04 → SUATTDRO 11:05 → 3N 11:50 → ED 13:02 → DCLOUNGE 08-10 13:12
PROVIDERS: ADMIT Family Medicine; ATTEND Family Medicine
DX: R50.9 Fever, unspecified (principal); Z20.822 Contact with and (suspected) exposure to COVID-19; R09.02 Hypoxemia; I13.0 Hypertensive heart and chronic kidney disease with heart failure and stage 1 through stage 4 chronic kidney disease, or unspecified chronic kidney disease; E11.22 Type 2 diabetes mellitus with diabetic chronic kidney disease; I50.32 Chronic diastolic (congestive) heart failure; N18.9 Chronic kidney disease, unspecified; L03.031 Cellulitis of right toe; E03.9 Hypothyroidism, unspecified; E78.5 Hyperlipidemia, unspecified; E66.9 Obesity, unspecified; I25.10 Atherosclerotic heart disease of native coronary artery without angina pectoris; J44.9 Chronic obstructive pulmonary disease, unspecified; I21.4 Non-ST elevation (NSTEMI) myocardial infarction; Z88.0 Allergy status to penicillin; Z79.82 Long term (current) use of aspirin; Z79.899 Other long term (current) drug therapy; Z79.4 Long term (current) use of insulin; Z95.5 Presence of coronary angioplasty implant and graft
CPT/HCPCS: 36415; 71045; 80048; 80053; 81001; 82962; 83605; 83735; 84145; 85025; 87040; 94640; 96365; 96366; 99284; G0378; J1815; J7060; J7626; U0003; U0005